=== PATIENT | male | born 1960 | race Caucasian/White ===

== ENCOUNTER 2018-06-13 05:48 | Inpatient (IN) | payer OTHER ==
[2018-06-08 09:18] LABS: Absolute Lymphocytes (CBC) 1.2 K/uL (0.7-4.9); Absolute Monocytes 0.8 K/uL (0.1-1.3); Absolute Neutrophil 5.1 K/uL (1.8-8.0); Eosinophils % 2.5 % (0-4.4); Hematocrit 45.4 % (39.6-49.0); Lymphocytes % 16.4 % (15.3-44.8); MPV 7.6 fL (7.6-11.3); Monocytes % 10.9 % (3.3-12.3); RBC Red Blood Cell Count 4.74 M/uL (4.33-5.43)
--- NOTE | 2018-06-08 09:20 | EKG ---
Test Date: 2018-06-08 Test Time: 08:51:15 Milking Machine Operator: JAY MEASUREMENT RESULTS: Intervals: Rate: 60 MD: 164 QRSD: 90 QT: 412 QTc: 412 [place]: P: 55 MD: 164 QRS: 59 T: 56 INTERPRETIVE STATEMENTS: Normal sinus rhythm Normal ECG Compared to ECG 06/13/2014 11:18:43 No significant changes Electronically Signed On 06-08-18 09:20:12 [employer] by Reji Berkowitz
[2018-06-08 09:21] LABS: Protime INR 0.9
--- NOTE | 2018-06-08 09:31 | RAD REPORT ---
EXAM DESCRIPTION: RAD - Chest Pa And Lat (2 Views) - 06/08/2018 8:48 am CLINICAL HISTORY: Preop chest, pending total left knee replacement, smoking history COMPARISON: Chest exam June 2009, CT abdomen study April 2017 TECHNIQUE: PA and lateral views of the chest were obtained. FINDINGS: The lungs are mildly fibrotic as a baseline. No failure, infiltrate or suspicious mass. A vague nodular density in the lateral left lung base has not changed since 2009. Based on the CT stud y this is probably a focus of scarring at the anterior base. Heart size is normal and central vascula ture is within normal limits. No pleural effusion or pneumothorax seen. No acute bony finding noted . No aortic abnormality. IMPRESSION: Mild scattered fibrotic change not substantially different from 2010. No acute finding.
[2018-06-13] MEDS ORDERED: Ringers Lactate 1,000 ML IV ONE (06:13)
[2018-06-13] MEDS ORDERED: VANCOMYCIN 1 GM/250 ML BAG ONE (06:13)
[2018-06-13] MEDS ORDERED: LIDOCAINE 1% MPF 30 ML VIAL ONE (06:14)
[2018-06-13] MEDS ORDERED: MIDAZOLAM HCL 2 MG/2 ML INJ ONE ×2 (07:16→07:17)
[2018-06-13] MEDS ORDERED: DEXAMETHASONE 4 MG/ML VIAL ONE (07:16)
[2018-06-13] MEDS ORDERED: FENTANYL CITR 250 MCG/5 ML ONE (07:17)
[2018-06-13] MEDS ORDERED: ROPLVACAINE HCL 20 ML ONE (07:17)
[2018-06-13] MEDS ORDERED: LIDOCAINE 2% MPF 5 ML VIAL ONE (07:33)
[2018-06-13] MEDS ORDERED: PROPOFOL 200 MG/20 ML VIAL IV ONE ×2 (07:33→09:29)
[2018-06-13] MEDS ORDERED: TRANEXAMIC ACID 1,000 MG in NA CHLORIDE 0.9% 50 ML IV ONE (08:00)
[2018-06-13] MEDS: BUPIVACA 0.5%/EPI 0.0005%/PF 10 ML VIAL ONE ×2 (08:32→09:38)
[2018-06-13] MEDS ORDERED: FENTANYL CITR 100 MCG/2 ML ONE ×2 (08:41→09:49)
[2018-06-13] MEDS: Ringers Lactate 1,000 ML IV ONE ×2 (09:06→09:30)
[2018-06-13] MEDS ORDERED: Phenylephrine HCl 10 MG/ML 1 ML VIAL ONE (09:56)
--- NOTE | 2018-06-13 10:22 | P.BOP ---
Preoperative diagnosis: left knee osteoarthritis Postoperative diagnosis: same Primary procedure: left total knee arthroplasty Secondary procedure: none Drug Safety Specialist: NONE,NONE Estimated blood loss: 20 cc Specimen: left knee bone remnants Findings: see dictation Anesthesia: General Complications: None Drain(s): Urinary catheter (removed at end of case) Implants: Biomet 67.5 CR femur, 83 tibia, 12mm CR E-poly, 37 patella Fluids & blood products: per anesthesia record; TT: 91 mins @ 300 mmHg Transferred to: Recovery Room Condition: Good
[2018-06-13] MEDS ORDERED: DOCUSATE NA 100 MG CAP PO PRN (10:24)
[2018-06-13] MEDS ORDERED: ONDANSETRON 4 MG/2 ML VIAL IV PRN (10:24)
[2018-06-13 11:08] LABS: Hematocrit 40.1 % (39.6-49.0)
--- NOTE | 2018-06-13 11:11 | RAD REPORT ---
EXAM DESCRIPTION: RAD - Knee Left 2 View - 06/13/2018 11:04 am CLINICAL HISTORY: Post Op Knee replacement surgery COMPARISON: Knee Left 3 View dated 12/15/2017; Knee Left 2 View dated 10/07/2014 FINDINGS: Left total knee arthroplasty is noted. No unexpected hardware abnormality. Small amount of air is present in the joint space. IMPRESSION: Postoperative left knee.
[2018-06-13] MEDS: MORPHINE 4 MG/ML SYR IV PRN ×4 (12:18→23:18)
[2018-06-13] MEDS: HYDROCODONE/APAP 7.5/325 MG TAB PO PRN (14:37)
[2018-06-13 15:23] VITALS: BMI 32.5
[2018-06-13] MEDS: CLINDAMYCIN INJ 600 MG in NA CHLORIDE 0.9% 50 ML IV SCH (16:24)
--- NOTE | 2018-06-13 20:18 | P.OP ---
Preoperative diagnosis: left knee osteoarthritis Postoperative diagnosis: same Primary procedure: left total knee arthroplasty Secondary procedure: none Anesthesia: General Estimated blood loss: 20 cc Specimen: left knee bone remnants Findings: see dictation Operative Technique: Indication For Procedure: Kiko is a 57-year-old male, who presented to my clinic with left knee pain due to left knee osteoarthritis. The patient failed conservative treatment measures including home exercises, corticosteroid injections and viscosupplementation injections. He reported continued pain that affect his activities of daily living. He was recommended total knee arthoplasty. Description Of Procedure: After informed consent was obtained, the patient was identified in preop holding area. The left lower extremity was marked. The patient underwent a femoral nerve block performed by Anesthesia. He was then taken back to the operative room and transferred to the operating table in supine fashion and placed under general LMA anesthesia. The left lower extremity was then prepped and draped in usual sterile fashion. A time-out was initiated. Correct patient and procedure were confirmed and identified. The patient had received preoperative prophylactic antibiotics. The left lower extremity was exsanguinated and the tourniquet was inflated to 300 mmHg. Approximately, a 15 cm longitudinal incision was made over the anterior aspect of the knee centered over the patella. A standard median parapatellar approach was taken. The dissection was taken to the extensor mechanism. A median parapatellar arthrotomy was then performed. The patella was then everted and the fat pad and medial and lateral meniscus were excised. A lateral release was performed of the patella and osteophytes were removed using a rongeur. There was significant cartilage wear on the undersurface of the patella and it was decided to resurface the patella. Next, attention was taken to the femur, retractors were placed within the knee and the knee was held in flexion. A partial synovectomy was performed over the anterior aspect of the distal femur. A cutting block has been created preoperatively using MRI imaging and the block was then placed over the distal femur and then positioned and was stacked into place and pins were placed within the guide hole in the block. The distal femoral cutting guide was then placed over the pre-placed guide pin and the distal femur was cut after proper confirming using an [place] wing. After this was performed, the anterior-posterior distal femoral cuts were made as well as the chamfer cut without complication. MCL and lateral remnants were resected as well as patellar tendon with knee retractors. Both remnants were then removed and sent to Pathology. Next attention was taken to the proximal tibia. The soft tissue medially was then elevated off the proximal tibia directly off bone using Bovie electrocautery. Pre-made cutting block was placed over the proximal tibia and once locked into position, pin were placed as well as the alignment jaquelin was used to ensure proper placement of the cutting guide. There was overall good alignment and position of the cutting guide. Pins were then placed. The cutting block was removed. The cutting guide was placed on the proximal tibia and again the alban wing was then used to ensure proper depth of the cut. An osteotome then used to make cuts around the PCL and the saw was used to cut the proximal tibia and the proximal tibial cut was then removed with the meniscal grasper. Bone fragments were then removed and meniscectomies were completed. Next, the knee was held in 90 degrees of flexion and forward extension and a 10-mm guide was then selected and there was good overall fit and stability in flexion and extension. Next, the trials were placed, size 67.5 CR femur was placed and a size 83 tibia with a 12 mm poly. The knee was then ranged and had good stability, both in forward flexion and extension and had full range of motion. The patella was then prepared. A size 37 patella was selected. A caliper was used to measure the thickness of the patella and a planar was then used to prepare the patella. It was drilled and a trial size 37 button was placed. There was good tracking of the patella with ROM. The knee was ranged and there was good stability of the patella as well as the rest of the knee. The tibia was marked with the Bovie electrocautery. The femur was drilled and once in proper position and the tibia was punched. Trial implants were then removed. The knee was then irrigated thoroughly with pulsed lavage normal saline. A 0.5% Marcaine with epinephrine was then used 20 cc for local anesthetic and to aid with postoperative pain control. The cement was prepared as well as the implant. Size 83 tibia was then placed followed by the size 67.5 CR femur. Excess cement was then removed using [place] elevator. A 12-mm trial poly was then placed and the knee was held in full extension as the cement hardened. Cement was placed on the undersurface of the patella and the final patella button was placed. Excess cement was removed. Once the cement was completely hardened, the knee was ranged with good overall stability as well as good flexion and extension. Trial poly ethylene liner was removed and a final 12 mm CR-E poly was placed and locked in position. The knee was again irrigated thoroughly with normal saline. The tourniquet was let down. Hemostasis was achieved with Bovie electrocautery. The extensor mechanism was closed with #1 Vicryl in an interrupted fashion followed by #1 Vicryl in a running fashion. Fascia was then approximated using 0 Vicryl. Subcutaneous tissue was approximated used 2- 0 Vicryl and the skin was approximated using 3-0 nylon. Sterile dressings were applied. The patient was awakened and transferred to PACU in stable condition. Postoperative Plan: He will be weightbearing as tolerated. Physical therapy will aide with mobilization and pain management. CPM machine will be placed in the PACU postoperatively. He has history of RLE DVT treated with Eliquis. He will admitted as an inpatient and will be in the hospital for at least 2 midnights. Complications: None Drain(s): Urinary catheter (removed at end of case) Implants: 67.5 Biomet CR femur, 83 tibia, 12 mm CR E-poly, 37 patella Fluids & blood products: per anesthesia record, 91 mins @ 300 mmHg Transferred to: Recovery Room Condition: Good
[2018-06-13] MEDS: OXYCODONE *CR* 10 MG TAB PO SCH (21:00)
[2018-06-13] MEDS: clonazePAM 1 MG TAB PO SCH (21:07)
[2018-06-14] MEDS: HYDROCODONE/APAP 7.5/325 MG TAB PO PRN ×3 (01:32→14:55)
[2018-06-14] MEDS: CLINDAMYCIN INJ 600 MG in NA CHLORIDE 0.9% 50 ML IV SCH ×2 (01:33→08:07)
[2018-06-14] MEDS: ENOXAPARIN 30 MG/0.3 ML SQ SCH ×2 (05:38→17:44)
[2018-06-14] MEDS: MORPHINE 4 MG/ML SYR IV PRN ×4 (05:38→17:34)
[2018-06-14 06:18] LABS: Absolute Lymphocytes (CBC) 1.8 K/uL (0.7-4.9); Absolute Monocytes 1.8 K/uL (0.1-1.3); Absolute Neutrophil 8.5 K/uL (1.8-8.0); Basophils % 0.5 % (0-1.3); Eosinophils % 0.8 % (0-4.4); Lymphocytes % 14.5 % (15.3-44.8); MPV 7.5 fL (7.6-11.3); Monocytes % 14.9 % (3.3-12.3); RBC Red Blood Cell Count 4.22 M/uL (4.33-5.43)
[2018-06-14 06:28] LABS: Potassium 4.1 mmol/L (3.5-5.1)
--- NOTE | 2018-06-14 07:52 | P.PN ---
Subjective Date of Service: 06/14/18 Chief Complaint: s/p L TKA some pain this morning with the left knee; also reports pain with urination since the surgery Physical Examination - Vital Signs Temperature: 98.1 F Blood Pressure: 114/69 Pulse: 86 Respirations: 16 Pulse Ox (%): 93 - Physical Exam General: Alert, In no apparent distress Musculoskeletal: Other (LLE: dressing c/d/i; +EHL/FHL/GSC/TA; sensation grossly intact distally) - Studies Laboratory Data (last 24 hrs) 06/14/18 05:34: Sodium 141, Potassium 4.1, BUN 18, Creatinine 1.00, Glucose 114 H 06/14/18 05:34: WBC 12.3 H D, Hgb 13.6, Hct 41.0, Plt Count 253 06/13/18 10:54: Hgb 13.7, Hct 40.1 Assessment And Plan - Plan Kiko is a 57 yo male s/p L TKA -will mobilize with PT today; WBAT LLE -h/h stable -lovenox for DVT prophylaxis -will monitor pain with urination; if pain continues, will consult urology
[2018-06-14] MEDS: OXYCODONE *CR* 10 MG TAB PO SCH ×2 (08:06→21:46)
[2018-06-14] MEDS: CELECOXIB 100 MG CAPSULE PO SCH (08:07)
[2018-06-14] MEDS: clonazePAM 1 MG TAB PO SCH (21:46)
[2018-06-15] MEDS: HYDROCODONE/APAP 7.5/325 MG TAB PO PRN ×2 (03:46→12:05)
[2018-06-15] MEDS: ENOXAPARIN 30 MG/0.3 ML SQ SCH (06:02)
[2018-06-15 08:21] VITALS: O2SAT 94
[2018-06-15] MEDS: OXYCODONE *CR* 10 MG TAB PO SCH (08:57)
[2018-06-15] MEDS: CELECOXIB 100 MG CAPSULE PO SCH (08:57)
--- NOTE | 2018-06-15 10:15 | P.DS ---
Admission Date: 06/13/18 Discharge Date: 06/15/18 Disposition: DC HOME/HOME HEALTH CARE Reason for Admission: s/p L TKA Consultations: none Procedures: L TKA on 06/13/2018 Brief History of Present Illness: Kiko underwent L TKA on 06/13/2018 without complication. Hospital Course: Kiko was admitted to the floor post op on 06/13/2018 for pain control and physical therapy. He had history of DVT on the RLE that was noted to have resolved on preop duplex. His pain was controlled while on the floor and his BP and vital signs remained stable. He was discharged on 06/15 in stable condition. He will restart Eliquis tomorrow. He will followup in my clinic in 1-2 weeks for suture removal. Vital Signs/Physical Exam: Temp Pulse Resp BP Pulse Ox 98.3 F 92 H 16 142/84 H 94 06/15/18 08:00 06/15/18 08:00 06/15/18 08:00 06/15/18 08:00 06/15/18 08:00 Laboratory Data at Discharge: WBC 12.3 K/uL (4.3-10.9) H D 06/14/18 05:34 Hgb 13.6 g/dL (13.6-17.9) 06/14/18 05:34 Hct 41.0 % (39.6-49.0) 06/14/18 05:34 Plt Count 253 K/uL (152-406) 06/14/18 05:34 PT 10.6 SECONDS (9.5-12.5) 06/08/18 08:40 INR 0.90 06/08/18 08:40 APTT 35.1 SECONDS (24.3-36.9) 06/08/18 08:40 Sodium 141 mmol/L (136-145) 06/14/18 05:34 Potassium 4.1 mmol/L (3.5-5.1) 06/14/18 05:34 BUN 18 mg/dL (7-18) 06/14/18 05:34 Creatinine 1.00 mg/dL (0.55-1.3) 06/14/18 05:34 Glucose 114 mg/dL (74-106) H 06/14/18 05:34 Home Medications: Cloazepam 1 Mg 1 mg PO BEDTIME 05/31/13 Hydrocodone Bit/Acetaminophen [Hydrocodon-Acetaminophn 10-325] 1 each PO Q4HP PRN 05/31/13 Apixaban [Eliquis *] 5 mg PO BID 06/08/18 Methocarbamol [Robaxin*] 500 mg PO BEDTIME 06/08/18 Hydrocodone 7.5/APAP 325 [[place] 7.5/325 mg*] 1 tab PO Q4H PRN tab 06/15/18 Patient Discharge Instructions: keep dressing clean dry and intact. change dressing to left knee on Wednesday 06/20 with new aquacell bandage. may restart Eliquis Saturday 06/16. Diet: Regular Activity: Weight bearing as tolerated Followup: Caio Lewis MD [ACTIVE - CAN ADMIT] - 1-2 Weeks
[2018-06-15 13:20] VITALS: BP 127/71; TEMP 98.6
== END 2018-06-15 13:28 | disposition home health service (06) | DRG 470 ==
LOC: OR 05:48 → 2ND 10:24 → OBSVTOIN 10:24
PROVIDERS: ADMIT Orthopaedic Surgery Sports Medicine; ATTEND Orthopaedic Surgery Sports Medicine
PROC: 0SRD0J9 Replacement of Left Knee Joint with Synthetic Substitute, Cemented, Open Approach (ICD-10-PCS; principal; 2018-06-13 07:30)
DX: M17.12 Unilateral primary osteoarthritis, left knee (principal); F17.210 Nicotine dependence, cigarettes, uncomplicated
CPT/HCPCS: 36415; 71046; 80048; 85014; 85018; 85025; 85610; 85730; 88304; 88311; 93005; 97116; 97139; 97163; J1650; J2250; J2370; J2405; J2704; J2795; J3010; J3370